=== PATIENT | female | born 1960 | race Caucasian/White ===

== ENCOUNTER → 2017-08-19 09:08 | Outpatient (CLI) | payer OTHER, SELFPAY ==
--- NOTE | 2017-08-19 09:11 | DI.RAD.S_ITS ---
PROCEDURE: XR ANKLE RT MIN 3V INDICATIONS: right ankle pain-roled from fall later malleolus-mid foot TECHNIQUE: 3 views of the ankle were acquired. COMPARISON: None. FINDINGS: Bones: No fractures or dislocations. Ankle mortise is normally aligned. No suspicious bony lesions. There is a small plantar calcaneal spur. Soft tissues: There may be a small tibiotalar joint effusion. Mild soft tissue swelling about the lateral malleolus is noted. IMPRESSION: No acute osseous abnormality of the right ankle. Dictated by: Arcenio Gaston M.D. on 08/19/2017 at 8:48 Approved by: Arcenio Gaston M.D. on 08/19/2017 at 8:50
== END ==
DX: S99.811A Other specified injuries of right ankle, initial encounter (principal)
CPT/HCPCS: 73610